=== PATIENT | female | born 1975 | race African-American/Black ===

== ENCOUNTER 2016-08-28 10:31 | Emergency (ER) | payer OTHER ==
[~2016-08-28] VITALS: Ht 160 cm; Wt 65.0 kg
[2016-08-28 10:33] VITALS: BP 125/87; PULSE 86; RESP 20; TEMP 98.6; O2SAT 97
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
[2016-08-28] MEDS ORDERED: ROBA500T PO (10:49)
[2016-08-28] MEDS ORDERED: NAPR500T PO (10:49)
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
[2016-08-28] MEDS ORDERED: LEVO.125 PO (11:15)
== END 2016-08-28 11:15 | disposition home or self-care (01) ==
LOC: NEPK 10:31
DX: M54.5 Low back pain (principal); V43.52XA Car driver injured in collision with other type car in traffic accident, initial encounter
CPT/HCPCS: 99283